=== PATIENT | male | born 1980 | race Caucasian/White ===

== ENCOUNTER 2021-01-09 10:05 | Outpatient (CLI) | payer MEDICARE, MEDICAID, SELFPAY ==
--- NOTE | ~2021-01-09 | CT_ITS ---
EXAMINATION: CT abdomen pelvis wo con EXAM DATE: 01/09/2021 10:44 INDICATION: Groin wound. TECHNIQUE: Spiral CT of the abdomen and pelvis was performed without contrast. Axial, coronal and s agittal images of the abdomen and pelvis were reviewed. The dose-length product (DLP) for this exami nation was 399.43 mGy-cm. The exposure was tailored according to patient size (auto mA exposure cont rol), and iterative reconstruction (ASIR) was used as additional dose reduction technique. There is no prior study for comparison. FINDINGS: There is probable identification of an ulceration/wound inside the inner fold between the r ight thigh medially and right side of peritoneal fat. No drainable abscess. No extension into the pel vis. There is a ventriculoperitoneal shunt catheter, imaged portion intact, tip in the pelvis. The liver, spleen, adrenal glands and pancreas are unremarkable. Gallbladder is unremarkable. No biliary obst ruction. There is no nephrolithiasis or hydronephrosis. The prostate is unremarkable. The bladder is unremarkable. There is no retroperitoneal or pelvic lymphadenopathy. The appendix is normal. There is small sliding gastroesophageal hiatal hernia. There is large amoun t of colonic stool through the sigmoid. No free intraperitoneal gas. The heart is normal in size. There are no pericardial or pleural effusions. The lung bases are unremarkable. Severe lumbar lev oscoliosis with rotatory component. IMPRESSION: 1. Right medial thigh/peroneal subcutaneous fat ulceration without drainable fluid. 2. Large amount of colonic stool. Reviewed, dictated and finalized at location B. OPERATOR IMPRESSION: 1. Right medial thigh/peroneal subcutaneous fat ulceration without drainable f luid. 2. Large amount of colonic stool.
== END 2021-01-09 10:06 | disposition home or self-care (01) ==
PROVIDERS: PCP Internal Medicine; Visit Provider Internal Medicine
DX: L98.492 Non-pressure chronic ulcer of skin of other sites with fat layer exposed (principal)
CPT/HCPCS: 74176

== ENCOUNTER 2021-02-04 20:45 | Emergency (ER) | payer MEDICARE, MEDICAID, SELFPAY ==
[2021-02-04] VITALS (19 sets, daily range): BP systolic 92–123; BP diastolic 47–77; PULSE 89; RESP 15; TEMP 36.1; O2SAT 93–98
[2021-02-04 21:34] LABS: Basophils Absolute Auto 0.1 K/mm3 (0.0-0.1); Basophils Percent Auto 1.3 % (0.2-1.2); Eosinophils Absolute Auto 0.2 K/mm3 (0-0.3); Eosinophils Percent Auto 3.5 % (0-4.4); Hematocrit 39.3 % (42.0-52.0); Hemoglobin 13.6 g/dL (14.0-18.0); Immature Granulocyte Absolute 0.23 K/mm3 (0.00-0.031); Immature Granulocyte Percent A 3.8 % (0-0.5); Lymphocytes Absolute Auto 1.59 K/mm3 (0.9-3.2); Lymphocytes Percent Auto 26.2 % (18.3-44.2); Mean Corpuscular HGB Conc 34.6 g/dl (32-36); Mean Corpuscular Hemoglobin 31.3 pg (26-34); Mean Corpuscular Volume 90.6 fl (80-100); Mean Platelet Volume 9.4 fl (7.4-10.4); Monocytes Absolute Auto 0.7 K/mm3 (0.1-0.6); Neutrophils Absolute Auto 3.2 K/mm3 (1.3-6.7); Neutrophils Percent Auto 53.2 % (45.5-73.1); Platelet Count Result 239 k/mm3 (150-375); Red Blood Count 4.34 M/mm3 (4.6-6.20); White Blood Count 6.1 K/mm3 (4.5-10.0)
[2021-02-04 21:43] LABS: Alanine Aminotransferase 16 U/L (4-50); Alkaline Phosphatase 78 U/L (38-126); Anion Gap 11 mmol/L (8-16); Aspartate Amino Transferase 22 U/L (17-59); Bilirubin,Total 0.5 mg/dL (0.2-1.3); Blood Urea Nitrogen 20 mg/dL (9-20); Carbon Dioxide 22 mmol/L (22-30); Chloride 103 mmol/L (98-107); Estimated CRCL calculation 124 ml/min; Estimated Glomerular Filt Rate > 60; Glucose 126 mg/dL (65-110); Potassium 3.5 mmol/L (3.4-5.0); Sodium 136 mmol/L (137-145)
[2021-02-04] MEDS: SODIUM CHLORIDE 0.9% IV 1,000 ML 999 ML IV CONT (22:34)
--- NOTE | 2021-02-04 23:45 | ED.GENADULT ---
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 He was seen in this evening after receiving multiple medications in there. He received allopurinol, he also received lisinopril 2.5 mg, he received fluoxetine 40 mg, and Miller 5/325 mg. Patient has no complaints. No dizziness lightheadedness. Denies chest pain or shortness of breath. No nausea/vomiting/abdominal pain. He had a blood pressure that was registering in the 70s apparently the [facility] prior to them transferring him here. He took the medication at 7 PM. Repeat blood pressures have been higher. EMS started IV fluid. Related Data Allergies Allergy/AdvReac Type Severity Reaction Status Date / Time No Known Allergies Allergy Verified 02/04/21 22:34 Review of Systems Review of Systems: All systems reviewed & are unremarkable except as noted in HPI and below Constitutional: Constitutional: Denies chills, Denies fever(s) and Denies weakness Cardiovascular: Cardiovascular: Denies chest pain, Denies rapid heart rate and Denies radiating jaw, neck or arm pain Respiratory: Respiratory: Denies cough, Denies dyspnea and Denies wheezing Gastrointestinal: Gastrointestinal: Denies abdominal pain, Denies nausea and Denies vomiting PMFSH Past Medical History Medical History (Updated 02/04/21 @ 23:52 by Salinas Pacheco MD) Psychotic disorder Schizophrenia Scoliosis Spastic quadriplegic cerebral palsy Surgical History Surgical History (Updated 02/04/21 @ 23:52 by Salinas Pacheco MD) No pertinent past surgical history Exam Narrative: GENERAL: Chronically ill-appearing, well-nourished, and in no acute distress. HEAD: Normocephalic, atraumatic. EYES: PERRL and EOMI. ENT: Mucous membranes moist. CHEST: Clear to auscultation. No respiratory distress. HEART: Regular rate and rhythm. Normal peripheral pulses. ABDOMEN: Soft, nontender, nondistended. EXTREMITIES: Contractures of upper and lower extremities. NEURO: Alert and oriented x3. Course Course Emergency Course: Patient resting comfortably and without symptoms. He was only given a low dose of lisinopril. Vital Signs Vital signs: Vital Signs Temperature 97 F L 02/04/21 20:49 Pulse Rate 89 02/04/21 20:49 Respiratory Rate 15 02/04/21 20:49 Blood Pressure 123/77 02/04/21 20:49 Pulse Oximetry 98 02/04/21 20:49 Temperature 97 F L 02/04/21 20:49 Pulse Rate 89 02/04/21 20:49 Respiratory Rate 15 02/04/21 20:49 Blood Pressure 105/66 02/05/21 00:03 Pulse Oximetry 97 02/05/21 00:03 Medical Decision Making Vital Signs Vital Signs: Vital Signs Temperature 97 F L 02/04/21 20:49 Pulse Rate 89 02/04/21 20:49 Respiratory Rate 15 02/04/21 20:49 Blood Pressure 123/77 02/04/21 20:49 Pulse Oximetry 98 02/04/21 20:49 Temperature 97 F L 02/04/21 20:49 Pulse Rate 89 02/04/21 20:49 Respiratory Rate 15 02/04/21 20:49 Blood Pressure 105/66 02/05/21 00:03 Pulse Oximetry 97 02/05/21 00:03 Lab Data Result diagrams: 02/04/21 21:22 02/04/21 21:22 Labs: Lab Results 02/04/21 02/04/21 Range/Units 21:22 21:22 WBC 6.1 (4.5-10.0) K/mm3 RBC 4.34 L (4.6-6.20) M/mm3 Hgb 13.6 L (14.0-18.0) g/dL Hct 39.3 L (42.0-52.0) % MCV 90.6 (80-100) fl MCH 31.3 (26-34) pg MCHC 34.6 (32-36) g/dl RDW 13.0 (11.5-14.5) % Plt Count 239 (150-375) k/mm3 MPV 9.4 (7.4-10.4) fl Immature Gran % (Auto) 3.8 H (0-0.5) % Neut % (Auto) 53.2 (45.5-73.1) % Lymph % (Auto) 26.2 (18.3-44.2) % [place] % (Auto) 12.0 H (2.6-8.5) % Eos % (Auto) 3.5 (0-4.4) % Baso % (Auto) 1.3 H (0.2-1.2) % Lymph # (Auto) 1.59 (0.9-3.2) K/
[2021-02-05] VITALS (19 sets, daily range): BP systolic 88–105; BP diastolic 53–66; O2SAT 95–99
== END 2021-02-05 04:40 ==
PROVIDERS: Emergency Provider Emergency Medicine; PCP Internal Medicine
DX: T50.991A Poisoning by other drugs, medicaments and biological substances, accidental (unintentional), initial encounter (principal); I95.89 Other hypotension; G80.0 Spastic quadriplegic cerebral palsy; F20.9 Schizophrenia, unspecified
CPT/HCPCS: 36415; 80053; 85025; 96360; 96361; 99283; J7030

== ENCOUNTER 2021-08-01 07:19 | Emergency (ER) | payer MEDICARE, MEDICAID, SELFPAY ==
[2021-08-01] VITALS (7 sets, daily range): BP systolic 99–120; BP diastolic 63–78; PULSE 105–123; RESP 13–18; TEMP 36.4; O2SAT 97–99
--- NOTE | ~2021-08-01 | CT_ITS ---
EXAMINATION: CT brain wo con DATE: 08/01/2021 07:56 INDICATION: Head injury. Headache. TECHNIQUE: Computed tomography (CT) of the head was performed without intravenous contrast. The mA wa s adjusted according to patient size. Iterative reconstruction technique was employed. The dose-lengt h product was 605.33 mGy-cm. COMPARISON: None FINDINGS: There is diffuse brain volume loss with a posterior predominance. Left cerebellar hemispher e is small. In the expected area of the left cerebellum, there is a 4.7 x 5.1 x 3.5 cm fluid collecti on that may be an arachnoid cyst. The lateral ventricles are enlarged, worse posteriorly. There is a right temporal occipital approach ventriculostomy catheter with tip in the trigone of right lateral v entricle. The mastoid air cells are normal. The orbits are normal. There is mild mucosal thickening i n the paranasal sinuses. The mastoid air cells are normal. IMPRESSION: 1. Diffuse brain volume loss with a posterior predominance with enlarged lateral ventricles and shunt catheter in expected position. Comparison with outside imaging is recommended to determine the signi ficance of the ventriculomegaly. 2. Small left cerebellum. Fluid in the expected area of left cerebellum may be an arachnoid cyst. Reviewed, dictated and finalized at location A. IMPRESSION: 1. Diffuse brain volume loss with a posterior predominance with enlarged latera l ventricles and shunt catheter in expected position. Comparison with outside i maging is recommended to determine the significance of the ventriculomegaly. 2. Small left cerebellum. Fluid in the expected area of left cerebellum may be an arachnoid cyst.
--- NOTE | ~2021-08-01 | CT_ITS ---
EXAMINATION: CT knee LT wo con DATE: 08/01/2021 08:57 INDICATION: Left knee pain. TECHNIQUE: Computed tomography (CT) of the left knee was performed without intravenous contrast. Auto mated exposure control and iterative reconstruction technique were employed. The dose-length product was 442.87 mGy-cm. COMPARISON: Left knee radiograph 08/01/2021 FINDINGS: There is a fracture of proximal tibia involving the posterior cortex of tibial metaphysis, the intercondylar eminence, and the medial and lateral tibial condyle articular surfaces with up to 2 mm offset at the posterior cortex of the tibial metaphysis. There is a nondisplaced fracture of fibu lar neck. Patella shukri is noted. There is diffuse osteopenia. Joint spaces are normal. There is a lar ge lipohemarthrosis. There is severe fatty atrophy of much of the musculature. IMPRESSION: 1. Bicondylar fracture of proximal tibia. 2. Nondisplaced fracture of fibular neck. 3. Large lipohemarthrosis. Reviewed, dictated and finalized at location A.
--- NOTE | ~2021-08-01 | XR_ITS ---
XR knee LT min 4V 08/01/2021 08:10 Indication: Status post fall with knee pain Procedure: 4 views left knee Comparison: No prior studies for comparison. There is subchondral sclerosis of the tibial plateaus with suggestion of depression of the tibial lorne teau on the lateral view. Cannot exclude nondisplaced fracture. There is a nondisplaced fibular neck fracture. Impression: 1: Possible tibial plateau fracture. Recommend correlation with CT. 2: Nondisplaced fibular neck fracture. 3: Moderate joint effusion. Reviewed, dictated and finalized at location D. Impression: 1: Possible tibial plateau fracture. Recommend correlation with CT. 2: Nondisplaced fibular neck fracture. 3: Moderate joint effusion.
--- NOTE | 2021-08-01 07:51 | PC.NURSE ---
Patient off unit to Radiology.
--- NOTE | 2021-08-01 08:41 | ED.GENADULT ---
HPI - General Adult General Chief complaint: Fall Stated complaint: fall from 4-5 ft during transfer History of Present Illness HPI narrative: 41-year-old male presenting to the emergency department for evaluation after having a fall from his [facility] today patient was being transferred by [facility] and fell approximately 4 feet to the ground. Patient did injure his left knee and did strike his head. Patient denies any loss consciousness. Patient's only complaint head pain is at the site of impact. Patient denies any other headache. Patient denies any associated numbness weakness. Patient is alert and oriented at his baseline. Patient does have bilateral leg contractions at baseline. Patient is not on ambulatory at baseline. Related Data Allergies Allergy/AdvReac Type Severity Reaction Status Date / Time No Known Allergies Allergy Verified 08/01/21 07:29 Review of Systems Review of Systems: CONSTITUTIONAL: Denies fever, chills, or sweats. EYES: Denies visual changes, redness, or discharge. ENT: Denies rhinorrhea, congestion, sore throat, or otalgia. CARDIOVASCULAR: Denies chest pain, palpitations, or edema. RESPIRATORY: Denies cough or dyspnea. GASTROINTESTINAL: Denies abdominal pain, nausea, vomiting, or diarrhea. GENITOURINARY: Denies dysuria or hematuria. SKIN: Denies rash or itching. MUSCULOSKELETAL: See HPI NEUROLOGIC: See HPI PSYCHIATRIC: Denies anxiety or depression. [facility] Past Medical History Medical History (Updated 08/01/21 @ 18:23 by Cosmo Salvador MD) Psychotic disorder Schizophrenia Scoliosis Spastic quadriplegic cerebral palsy Surgical History Surgical History (Updated 02/04/21 @ 23:52 by Salinas Pacheco MD) No pertinent past surgical history Exam Narrative: APPEARANCE: Well appearing, no pain, no distress, well-nourished. HEAD: Occipital hematoma and tenderness to palpation EYES: PERRLA/EOMI, conjunctivae clear. NOSE: Normal no drainage THROAT: Pharynx clear, no exudate. NECK: Supple. No adenopathy, no masses. RESPIRATORY: Airway patent, respirations nonlabored. Clear to auscultation bilaterally, no rales, rhonchi, wheezing. CARDIOVASCULAR: Regular rate and rhythm without murmurs rubs or gallops. ABDOMINAL: Soft, nontender, nondistended, normal bowel sounds MUSCULOSKELETAL: Moves all extremities. Left knee tenderness to palpation. No deformity noted. Contractures to both legs. NEURO: Alert. Cranial nerves II through XII intact. At baseline SKIN: Warm, dry. Normal Color Course Course Emergency Course: I was unable to speak to a neurosurgeon at [facility] for recommendations regarding the head CT. Patient needed to be transferred to the ED as a trauma. Case discussed with the ED physician and patient was accepted as an ED to ED transfer. Patient's left lower extremity was splinted in a position of comfort. Vital Signs Vital signs: Vital Signs Temperature 97.6 F 08/01/21 07:20 Pulse Rate 119 H 08/01/21 07:20 Respiratory Rate 13 08/01/21 07:20 Blood Pressure 99/63 L 08/01/21 07:20 Pulse Oximetry 99 08/01/21 07:20 Oxygen Delivery Room Air 08/01/21 07:20 Temperature 97.6 F 08/01/21 07:20 Pulse Rate 116 H 08/01/21 11:50 Respiratory Rate 14 08/01/21 11:50 Blood Pressure 120/74 08/01/21 11:50 Pulse Oximetry 98 08/01/21 11:50 Oxygen Delivery Room Air 08/01/21 07:20 Medical Decision Making Vital Signs Vital Signs: Vital Signs Temperature 97.6 F 08/01/21 07:20 Pulse Rate 119 H 08/01/21 07:20 Respiratory Rate 13 08/01/21 07:20 Blood Pressure 99/63 L 08/01/21 07:20 Pulse Oximetry 99 08/01/21 07:20 Oxygen Delivery Room Air 08/01/21 07:20 Temperature 97.6 F 08/01/21 07:20 Pulse Rate 116 H 08/01/21 11:50 Respiratory Rate 14 08/01/21 11:50 Blood Pressure 120/74 08/01/21 11:50 Pulse Oximetry 98 08/01/21 11:50 Oxygen Delivery Room Air 08/01/21 07:20 Lab Data Lab results reviewed: Yes I reviewed the
--- NOTE | 2021-08-01 08:51 | PC.NURSE ---
Patient off unit to CT for left knee CT.
[2021-08-01] MEDS: HYDROmorphone HCL INJ (*CRX) 1 MG/ML SYR 0.5 MG IV PUSH (10:34)
--- NOTE | 2021-08-01 10:50 | PC.NURSE ---
Patient report called to [facility] MOHSEN Ghotra.
--- NOTE | 2021-08-01 11:22 | PC.NURSE ---
Patient report given to MOHSEN Perez. All questions answered and care of patient transferred.
== END 2021-08-01 11:51 | disposition short-term general hospital (02) ==
LOC: ANHED 08:13
PROVIDERS: Emergency Provider Emergency Medicine; PCP Internal Medicine
DX: S09.90XA Unspecified injury of head, initial encounter (principal); S82.145A Nondisplaced bicondylar fracture of left tibia, initial encounter for closed fracture; F20.9 Schizophrenia, unspecified; G80.0 Spastic quadriplegic cerebral palsy; W17.89XA Other fall from one level to another, initial encounter
CPT/HCPCS: 70450; 73564; 73700; 96374; 99285; J1170; L0140